=== PATIENT | female | born 1975 | race Asian ===

== ENCOUNTER 2017-03-27 10:30 | Observation (INO) | payer OTHER ==
--- NOTE | 2017-03-21 16:36 | GHP ---
[f rep st] PREOP HISTORY AND PHYSICAL Amended report DATE OF PLANNED PROCEDURE: 03/29/2017 PLANNED PROCEDURE: Total laparoscopic hysterectomy with bilateral salpingectomy. INDICATIONS: The patient is a 41-year-old 4, para 2-0-2-2, who presented in December 2016 with complaint of heavy cycles for 1 year. The patient had been regular and unremarkable until last year, then began becoming extremely heavy and the 1st and 2nd day of her cycle, she has to change a super plus tampon every 45 minutes and then they lighten up and bleeds for 5 days. Cycles are regular. She saw her primary care provider who put her on control pills. She was on continuous control pills. On day 30 of her cycle, she started bleeding and bled x3 weeks, so she stopped. Was started on another continuous control pill and the same thing happened. The patient' s family status is complete. Her had a vasectomy. She had an ultrasound which showed an enlarged fibroid uterus. Management options were extensively reviewed with the patient. She is having anemia because of the menorrhagia and she was started on iron. She is requesting definitive therapy with hysterectomy with bilateral salpingectomy. Risks and benefits of the procedure have been reviewed with the patient. Patient has been properly consented. MEDICAL HISTORY: 1. Menorrhagia. 2. Fibroids. 3. Anemia secondary to menorrhagia. 4. Hypertension. 5. Hypothyroidism. MEDICATIONS: Multivitamin, vitamin D, Synthroid, probiotics, and Bifera. ALLERGIES: Flonase. SURGICAL HISTORY: Basic eye surgery, breast augmentation. FAMILY MEDICAL HISTORY: Noncontributory. SOCIAL HISTORY: Patient is . She denies tobacco, alcohol, or drug use. METALWORKING SPECIALIST HISTORY: Menarche age 12. Periods are monthly and very heavy. She denies a history of abnormal Pap smears or sexually transmitted diseases. She is a 4, para 2-0-1-2. In 2002, she had a spontaneous miscarriage. In 2004, she had a spontaneous vaginal delivery. In 2006, she had a stillbirth and in 2007, she had a spontaneous vaginal delivery. REVIEW OF SYSTEMS: 10-point review of systems is negative except for the above- mentioned pertinent positives. PHYSICAL EXAM: VITAL SIGNS: Patient's vital signs are stable. GENERAL APPEARANCE: No acute distress and unremarkable. PSYCHIATRIC: Alert oriented x3. Mood and affect appropriate. NEUROLOGIC: Grossly intact. SKIN: Warm, dry. No rashes, ulcers, or lesions. HEENT: Normocephalic. NECK: Supple with trachea midline and nontender. There is no thyromegaly noted. LUNGS: Clear to auscultation bilaterally. HEART: Rate is regular. No murmurs or extra tones are noted. BREASTS: Bilateral breast implants are noted. ABDOMEN : Soft, nondistended, nontender. There are positive bowel sounds in all 4 quadrants. No organomegaly. PELVIC: An enlarged uterus with fullness on the right posterior side of the uterus. EXTREMITIES: Reveal no calf tenderness or edema. IMAGING: Pelvic ultrasound showed the uterus measuring 12 x 7.6 x 8.8 cm with an endometrium measuring 0.76 cm. There is a 5.5 x 7 x 5.19 cm submucosal posterior fibroid. Ovaries are unremarkable. Her most recent blood count: Her hemoglobin was 9.7, hematocrit was 31.3. ASSESSMENT AND PLAN: A 41-year-old, 4, para 2-0-2-2, with symptomatic fibroid uterus, menorrhagia, and anemia and the patient has been started on iron. She will undergo a total laparoscopic hysterectomy with bilateral salpingectomy. Risks and benefits have been extensively reviewed with the patient. The patient has been properly consented. /[id number]/MODL Add acc#, 03/23/17, sherry POLANCO
[2017-03-29] MEDS ORDERED: ceFAZolin 2 GM/DEXTROSE 100 ML IV ONE (06:00)
[2017-03-29] MEDS ORDERED: LIDOCAINE 1% 2 ML INJ ONE (06:03)
[2017-03-29] MEDS ORDERED: BUPIVACAINE 0.5% 30 ML SDV ONE (06:35)
[2017-03-29] MEDS ORDERED: MIDAZOLAM 2 MG/2 ML VIAL ONE (07:05)
[2017-03-29] MEDS ORDERED: fentaNYL 100 MCG/2 ML INJ ONE ×2 (07:11)
[2017-03-29] MEDS ORDERED: PROPOFOL 200 MG/20 ML VIAL ONE (07:12)
[2017-03-29] MEDS ORDERED: ONDANSETRON 4 MG/2 ML VIAL IVP PRN (10:14)
[2017-03-29] MEDS ORDERED: HYDROCODONE/APAP 5/325 TAB PO PRN (10:14)
[2017-03-29] MEDS ORDERED: LACTULOSE 20 GM/30 ML UDCUP PO PRN (10:17)
[2017-03-29] MEDS ORDERED: HYDROmorphONE/DILAUDID 1 MG/ML SYR IVP PRN (10:17)
[2017-03-29] MEDS ORDERED: POLYETHYLENE GLYCOL 3350 17 GM PKT PO PRN (10:17)
[2017-03-29] MEDS ORDERED: BISACODYL 10 MG SUPP PR PRN (10:17)
[2017-03-29] MEDS ORDERED: MAGNESIUM HYDROXIDE 30 ML UDCUP PO PRN (10:17)
[2017-03-29] MEDS ORDERED: LR 1,000 ML IV SCH (10:30)
--- NOTE | 2017-03-29 11:38 | GOP ---
[f rep st] OPERATIVE REPORT DATE OF OPERATION: 03/29/2017 SURGEON: Karina Blackwell DO [employer] COACH: Margot Herron MD ANESTHESIOLOGIST: Meek Aquino MD PREOPERATIVE DIAGNOSIS: 1. Symptomatic uterine fibroids. 2. Menorrhagia. 3. Anemia secondary to #1 and #2. POSTOPERATIVE DIAGNOSIS: 1. Symptomatic uterine fibroids. 2. Menorrhagia. 3. Anemia secondary to #1 and #2. PROCEDURE PERFORMED: Total laparoscopic hysterectomy. FINDINGS: 1. Exam under anesthesia: Mobile, mid position uterus with no adnexal masses. Enlarged uterus wit h an anterior right fundal fibroid. 1. Laparoscopic findings: Enlarged fibroid uterus. Normal ovaries and tubes. 2. SPECIMENS: Bilateral fallopian tubes and uterus and cervix. ESTIMATED BLOOD LOSS: 75 cc. INDICATIONS: Patient is a 41-year-old 4, para 2-0-0-2, who presented in December of 2016 co mplaining of heavy cycles for 1 year. Patient had been regular, unremarkable until the prior year, and then became extremely heavy on the first and second day of her cycle. She has to change her sup er plus tampon every 45 minutes for the first 2 days of her cycle, and then they lighten up and she bleeds for 5 more days. Cycles are regular. She tried continuous control pills and other man agement, but continued to have heavy bleeding and resultant anemia. The patient presented requestin g definitive therapy with hysterectomy. A pelvic ultrasound showed a uterus measuring 12 x 7.8 x 8. 8 cm, with a 5.5 x 7 x 5.9 cm submucosal posterior fibroid. Ovaries and tubes were unremarkable. M anagement options extensively reviewed with the patient. The patient elected to proceed with a tota l laparoscopic hysterectomy with bilateral salpingectomy. Risks and benefits were reviewed with the patient. The patient was properly consented. DESCRIPTION OF PROCEDURE: Patient was taken to the operating room with intravenous fluids in place. She was then placed on the operating room table in the dorsal supine position, where general anest hesia was obtained. She was then repositioned into the dorsal lithotomy position with the Yellofin stirrups and prepped and draped in normal sterile fashion. A Gordon catheter was then placed. Exam under anesthesia revealed a mobile midposition uterus. A speculum was then placed in the patient's vagina and a single-tooth tenaculum was used to grasp the anterior lip of the cervix. The cervix wa s sounded 10 cm. The 10 cm tip of the CHERY was applied to the CHERY handle and the large cup was ins erted. Once the large tip was inserted the balloon was inflated, the tip did come out, so the cup w as not all the way up against the top of the vaginal mucosa, so I switched it out to the 8 tip. Thi s fit perfectly. The CHERY was then inserted and good visualization of the uterus was noted. Attent ion was then turned to the patient's abdomen, where a 5 mm skin incision was then made in the umbili cus. The 5 mm trocar was then advanced into the patient's abdomen under direct visualization with t he laparoscope. The abdomen was then insufflated with CO2 gas until an adequate pneumoperitoneum wa s achieved. The area underneath the trocar insertion site was unremarkable. The uterus was visuali zed. It was mobile but enlarged, so the left trocar was then placed a hand's breadth superior and m edial to the left ASIS. A 10 mm incision was then made and a 10 mm trocar was advanced under direct visualization. The balloon was then inflated. A third trocar was placed on the patient's right si de and just directly across from the left-sided trocar. This was a 5 mm trocar. This was done unde r direct visualization. The camera was then placed in the left lower quadrant to evaluate the place ment of the umbilical trocar. No adhesions were noted around that and the camera was then returned to the umbilical incision. Bilateral ureters were visualized peristalsing. The uterus was then joby vated. The left fallopian tube was then identified and followed out to the fimbriated end, and a le ft salpingectomy was performed. The specimen was then withdrawn through the trocar. The left round ligament was clamped, cauterized, and transected with the LigaSure. The left utero-ovarian ligamen t was clamped, cauterized, and transected with the LigaSure. The broad ligament was dissected out t he same way. The uterine arteries were then clamped, cauterized, and transected. The bladder flap was created anteriorly easily well away from the bladder. Attention was then turned to the patient' s right side, where the right salpingectomy was then performed. The right utero-ovarian ligament an d right round ligament were then clamped, cauterized, and transected, and the anterior and posterior leaflet of the broad ligament were dissected out and transected. The right uterine artery was clam ped, cauterized, and transected, and tissue was dissected down to the colpotomy ring, which was easi ly visualized. The LigaSure monopolar hook was then used to perform the colpotomy, which was done w ithout difficulty. The CHERY was then withdrawn from the vagina and the Laci bag was then inserted into the patient's abdomen through the vagina, and the uterus was then brought up to the introitus and was able to be removed with that bag. The sponge stick was then reinserted into the patient's v agina and attention was then turned to the patient's abdomen. The pedicles were copiously irrigated and found to be hemostatic. The vaginal cuff was hemostatic. The V-Loc suture was then used in a running fashion to close the vaginal cuff, taking care to incor porate the peritoneum and vaginal mucosa. A second V-Loc suture was used for the other angle, start ing at the left angle toward the right angle, past the midline to ensure adequate cuff closure. The suture was then withdrawn. Again, the pelvis and abdomen were irrigated and found to be hemostatic . The appendix was identified and unremarkable. The 10 mm trocar was then removed from the patient 's abdomen and fascial closure device was then inserted, and the fascia was closed with an 0 Vicryl suture. CO2 gas was then expressed from the patient's abdomen, and the other trocars were then nohemi noé without difficulty. The skin was then closed with 4-0 Monocryl. Speculum exam was performed. There was a small clot of blood in the vagina, but no active bleeding was noted after that was clear ed. Sponge, lap, and needle count were correct x2. Patient was transferred to recovery room in sta ble condition. /[id number]/MODL
[2017-03-29 11:50] VITALS: O2SAT 100
[2017-03-29] MEDS ORDERED: KETOROLAC 30 MG/1 ML SDV IVP SCH (12:00)
--- NOTE | 2017-03-29 12:47 | SOAPPROG ---
SOAP Progress Note Assessment/Plan: Assessment: POD # 0 s/p TLH BS anemia - pre op secondary to menorrhagia chronic hypertension Plan: bp meds dc pisano discharge instructions 03/29/17 12:43 Subjective: patient is doing great! denies any pain except from catheter, tolerating clears , ready to eat regular diet, ambulating. denies vaginal bleeding. wants to go home tonight. long discussion about post operative care, post operative visits and iron. Objective: Vital Signs Temp Pulse Resp BP Pulse Ox 36.7 C 72 18 160/97 H 100 03/29/17 11:14 03/29/17 11:44 03/29/17 11:44 03/29/17 11:44 03/29/17 11:44 03/28/17 03/29/17 03/30/17 05:59 05:59 05:59 Intake Total 1700 Output Total 75 Balance 1625 Physical Exam - Physical Exam General Appearance: WD/WN, alert, no apparent distress Neck: non-tender, full range of motion, supple Respiratory: chest non-tender, lungs clear, normal breath sounds Cardiac/Chest: normal peripheral pulses, regular rate, rhythm Abdomen: normal bowel sounds, non-tender, soft, other (incisions covered) Skin: normal color, warm/dry Extremities: normal range of motion, non-tender, normal inspection, normal capillary refill Neuro/Psych: no motor/sensory deficits, alert, normal mood/affect, oriented x 3 ICD10 Worksheet Patient Problems: Problems Problem Status Onset Menorrhagia Acute S/P laparoscopic hysterectomy Acute
[2017-03-29] MEDS ORDERED: TRIAMTERENE/HCTZ 37.5/25 1 EACH CAP PO SCH (13:00)
[2017-03-29] MEDS ORDERED: IRON POLYSAC/IRON HEME 28 MG TAB PO SCH (13:00)
[2017-03-29] MEDS: TRIAMTERENE/HCTZ 37.5/25 1 EACH TAB PO SCH ×2 (13:53→13:54)
[2017-03-29 17:25] VITALS: BP 153/93; PULSE 80
[2017-03-29 17:26] VITALS: RESP 14; TEMP 98.1
[2017-03-29] MEDS ORDERED: SENNOSIDES/DOCUSATE SODIUM TAB PO SCH (21:00)
[2017-03-30] MEDS ORDERED: FLUTICASONE NASAL SCH (09:00)
[2017-03-30] MEDS ORDERED: NON-FORMULARY NEW DRUG (Fluticasone Nasal [Flonase Nasal Spray] 2 SPRAYS) NASAL SCH (09:00)
[2017-03-30] MEDS ORDERED: TRIAMTERENE/HCTZ 37.5/25 1 EACH CAP PO SCH (09:00)
[2017-03-30] MEDS ORDERED: IBUPROFEN 600 MG TAB PO SCH (10:16)
== END 2017-03-29 18:00 | disposition home or self-care (01) ==
LOC: F3E 03-29 05:48 → FOB 03-29 12:55
PROVIDERS: ADMIT Obstetrics & Gynecology; ATTEND Obstetrics & Gynecology
PROC: 0UT7FZZ Resection of Bilateral Fallopian Tubes, Via Natural or Artificial Opening With Percutaneous Endoscopic Assistance (ICD-10-PCS; principal; 2017-03-29 07:15)
PROC: 0UT9FZZ Resection of Uterus, Via Natural or Artificial Opening With Percutaneous Endoscopic Assistance (ICD-10-PCS; principal; 2017-03-29 07:15)
DX: D25.9 Leiomyoma of uterus, unspecified (principal); N92.0 Excessive and frequent menstruation with regular cycle; D50.0 Iron deficiency anemia secondary to blood loss (chronic); I10 Essential (primary) hypertension; E03.9 Hypothyroidism, unspecified
CPT/HCPCS: 58573; G0378; J0690; J1885; J2250; J2704; J3010

== ENCOUNTER → 2017-04-23 | Outpatient (CLI) | payer OTHER | LOC: CIMAGING 09:37 | DX: Z12.31 Encounter for screening mammogram for malignant neoplasm of breast (principal); Z80.3 Family history of malignant neoplasm of breast | CPT/HCPCS: G0202 ==

== ENCOUNTER → 2018-04-30 | Outpatient (CLI) | payer OTHER | LOC: CIMAGING 09:45 | PROVIDERS: ATTEND Family Medicine | DX: Z12.31 Encounter for screening mammogram for malignant neoplasm of breast (principal); Z80.3 Family history of malignant neoplasm of breast; Z98.82 Breast implant status ==

== ENCOUNTER → 2018-10-30 | Outpatient (CLI) | payer OTHER | LOC: CIMAGING 15:42 | PROVIDERS: ATTEND Family Medicine | DX: M79.645 Pain in left finger(s) (principal) | CPT/HCPCS: 73140-PO ==

== ENCOUNTER → 2019-05-01 | Outpatient (CLI) | payer OTHER | LOC: CIMAGING 09:09 ==